=== PATIENT | male | born 1990 | race Caucasian/White ===

== ENCOUNTER 2018-04-03 10:18 | Emergency (ER) | payer MEDICAID ==
[~2018-04-03] VITALS: Ht 182.9 cm; Wt 112.5 kg
[2018-04-03 10:20] VITALS: Ht 182.9 cm; Wt 112.5 kg
[2018-04-03 11:45] VITALS: BP 103/75
== END 2018-04-03 11:45 | disposition home or self-care (01) ==
LOC: ED 10:18
DX: S39.012A Strain of muscle, fascia and tendon of lower back, initial encounter (principal); X50.0XXA Overexertion from strenuous movement or load, initial encounter; Y93.89 Activity, other specified; Y92.89 Other specified places as the place of occurrence of the external cause; Y99.8 Other external cause status
CPT/HCPCS: J1885